=== PATIENT | female | born 2000 | race Two or more races ===

== ENCOUNTER 2023-08-23 20:28 | Emergency (ER) | payer MEDICAID ==
[~2023-08-23] VITALS: Ht 160 cm; Wt 47.3 kg
[2023-08-23 20:33] VITALS: TEMP 98.5
[2023-08-23 23:10] LABS: BASOPHILS % (AUTO) 0.3 % (0.0-2.0); EOSINOPHILS % (AUTO) 1.6 % (1.0-6.0); HEMATOCRIT 38.3 % (36-46); HEMOGLOBIN 12.9 g/dL (12.0-16.0); LYMPHOCYTES # (AUTO) 1.8 K/uL (1.0-4.8); LYMPHOCYTES % (AUTO) 21.3 % (22.0-44.0); MEAN CORPUSCULAR HGB CONC 33.6 G/dL (31.0-37.0); MEAN CORPUSCULAR VOLUME 89 fL (80-100); MONOCYTES # (AUTO) 0.6 K/uL (0.1-1.0); MONOCYTES % (AUTO) 6.8 % (2.0-9.0); NEUTROPHILS # (AUTO) 5.9 K/uL (1.8-7.7); PLATELET COUNT (AUTO) 262 K/uL (150-450); RED CELL DISTRIBUTION WIDTH 12.7 % (11.5-14.5); WHITE BLOOD COUNT (AUTO) 8.5 K/uL (4.5-11.0)
[2023-08-24 00:16] VITALS: BP 127/93; PULSE 98; RESP 16
== END 2023-08-24 00:55 | disposition home or self-care (01) ==
LOC: EMS 20:28
DX: O20.0 Threatened abortion (principal); Z3A.01 Less than 8 weeks gestation of pregnancy
CPT/HCPCS: 76801; 84702; 85025; 86901; 99284